=== PATIENT | female | born 1975 | race Caucasian/White ===

== ENCOUNTER 2016-09-06 13:03 | Emergency (ER) | payer OTHER ==
[~2016-09-06 13:03] MED LIST: ABIL15TA OR; ASPI81TA83 OR; BUDE150T; CAHNTIXC PO; CHAN0.5P PO; CYMBALTA60 PO; DARVOCET-N PO; DIFLUC150 PO; DOXYCYC100 PO; EFFE75CA75 OR; EFFEXOR PO; FELDENE; FELDENE20 PO; FLEXERIL; FLEXERIL10 PO; GEOD60CA; GEODON20; HABITROL14 TOPICAL; HABITROL7 TOPICAL; KLON0.5T OR; MOTRIN800 PO; NAPROSY500 PO; NICODERM TOPICAL; PIROPOW2; PREVMIS PO; PRIL20CA OR; PRILOSEC20 PO; PRILOSECOT PO; PROP60TA OR; PROTONIX40 PO; PROZ40CA; PROZAC20 PO; PROZAC40 PO; TORADOL PO; TRAM50TA2; TRAZ100T OR; ULTRAM50 PO; WELLBUT300; ZIPR80CAP
[2016-09-06 13:43] LABS: MEAN CORPUSCULAR HEMOGLOBIN 33.4 pg (27.0-33.0); MEAN CORPUSCULAR VOLUME 95.5 fl (80.0-96.0); WHITE BLOOD COUNT 8.6 K/mm3 (4.0-10.0)
[2016-09-06 13:50] LABS: CONTROL LINE HCG INT CTR LINE PRESENT
[2016-09-06 13:51] LABS: CONTROL LINE INT CTR LINE PRESENT; METHADONE URINE NEGATIVE (NEGATIVE); TRICYCLIC ANTIDEPRESS URINE NEGATIVE (NEGATIVE)
[2016-09-06 14:06] LABS: ALBUMIN 3.5 GM/DL (3.2-5.2); ALBUMIN/GLOBULIN RATIO 1.06 (1.00-1.93); ALKALINE PHOSPHATASE 79 U/L (45-117); ALT/SGPT 18 U/L (12-78); ANION GAP 13 MEQ/L (8-16); AST/SGOT 9 U/L (15-37); BILIRUBIN,DIRECT < 0.1 MG/DL (0.0-0.2); BILIRUBIN,TOTAL 0.3 MG/DL (0.2-1.0); BLOOD UREA NITROGEN 9 MG/DL (7-18); CALCIUM LEVEL 8.5 MG/DL (8.5-10.1); CARBON DIOXIDE LEVEL 24 MEQ/L (21-32); CHLORIDE LEVEL 105 MEQ/L (98-107); CREATININE FOR GFR 1.05 MG/DL (0.55-1.02); GLOMERULAR FILTRATION RATE > 60.0 (>58); GLUCOSE, FASTING 122 MG/DL (70-105); POTASSIUM SERUM 3.9 MEQ/L (3.5-5.1); SODIUM LEVEL 142 MEQ/L (136-145); TOTAL PROTEIN 6.8 GM/DL (6.4-8.2)
[2016-09-06] MEDS ORDERED: NICOTINE 21MG/24HR 1 EA TRANSDERMAL As Ordered ONE (14:22)
--- NOTE | 2016-09-06 17:40 | EDDOCDS ---
Physician Documentation [facility] Name: Florence Flores Age: 41 yrs Sex: Female : 1975 Arrival Date: 09/06/2016 Time: 13:03 Bed 31 Private MD: NO PRIMARY PHYSICIAN, . Disposition: 09/06/16 17:23 Discharged to Home/Self Care. Impression: Adjustment disorder with depressed mood. - Condition is Stable. - Discharge Instructions: Depression, Adult. - Medication Reconciliation, Local Pharmacy Hours form. - Follow up: Referral list, As provided by PFS; When: As soon as possible; Reason: Recheck today's complaints, Continuance of care. - Problem is an ongoing problem. - Symptoms are unchanged. Historical: - Allergies: Robitussin PE (Hives); - Home Meds: 1. Albuterol Inhl every 4-6 hours prn 2. cyclobenzaprine 10 mg Oral tab 1 tab 3 times per day (Last dose: 09/05/2016) 3. Dulera 200-5 mcg/actuation inhalation HFAA every 12 hours 4. Asmanex Twisthaler 220 mcg (30 doses) inhalation aepb 1 puff once daily - PMHx: Angina; arthitis; Asthma; COPD; [place]; AIR POCKET IN SPINE; - PSHx: Tubal ligation; Cholecystectomy; cauterization of cervix; Colonoscopy; - Social history: Smoking status: Patient uses tobacco products, current every day smoker. No barriers to communication noted, The patient speaks fluent [place]serrat[place], Speaks appropriately for age. - Family history: Not pertinent. - : The pt / caregiver states he / she is not on anticoagulants. Home medication list is obtained from the patient. - Exposure Risk Screening:: None identified. 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 8 in. (172.72 cm); 17:34 BP 124 / 60; Pulse 89; Resp 97; Temp 96.8; Pulse Ox 97% on R/A; amw 13:05 Body Mass Index 36.49 (108.86 kg, 172.72 cm) lr2 MDM: 13:19 Consult PFS/PSA/Cull Grader ordered. sd1 13:19 Consult PFS/PSA/Cull Grader: Patient's case requires discussion with on-call sd1 Psychiatrist ordered. 13:19 PSA/PFS to call Nursing Certified Nursing Assistant, to enter patient data on [place] Safe [place] if patient sd1 involuntarily admitted or transferred for SI or HI ordered. 13:19 Confirm accurate psychiatric medication list and times of last dosage ordered. sd1 13:19 Detain Pt Until Medically/PFS Cleared ordered. sd1 13:21 Acetaminophen Level Ordered. EDMS 13:21 Basic Metabolic Profile Ordered. EDMS 13:21 Complete Blood Count Ordered. EDMS 13:21 Drug Eval Toxicology ED Only Ordered. EDMS 13:21 Ethyl Alcohol (ethanol) Ordered. EDMS 13:21 HCG,Serum Qualitative Ordered. EDMS 13:21 Liver Profile Ordered. EDMS 13:21 Salicylate Level Ordered. EDMS 13:21 Thyroid Stimulating Hormone Ordered. EDMS 13:51 Nicotine Patch 21 mg/24 hr 1 applic Transdermal once ordered. ke 15:54 Financial registration complete. zo 16:47 REGULAR DIET PLASTIC HEADLEY+DIET ordered. EDMS 17:37 Consult PFS/PSA/Cull Grader complete. me3 17:37 Consult PFS/PSA/Cull Grader: Patient's case requires discussion with on-call md3 Psychiatrist complete. 17:37 PSA/PFS to call Nursing Certified Nursing Assistant, to enter patient data on [place] Safe [place] if patient me3 involuntarily admitted or transferred for SI or HI complete. Administered Medications: 14:25 Drug: Nicotine 1 applic [nicotine 21 mg/24 hr daily transdermal patch (1 patches)] me3 Route: Transdermal; Site: left upper arm; Signatures: Dispatcher [employer] EDThalia Nayak MD MD sd1 Pauline Camejo, RN RN Jackson Law, THEATRICAL PERFORMER THEATRICAL PERFORMER Soniya Hays LPN LPN me3 Nathaniel Hare MTDD
--- NOTE | 2016-09-06 17:40 | EDDOCDS ---
Nurse's Notes [facility] Name: Florence Flores Age: 41 yrs Sex: Female : 1975 Arrival Date: 09/06/2016 Time: 13:03 Bed 31 Private MD: NO PRIMARY PHYSICIAN, . Diagnosis: Adjustment disorder with depressed mood Presentation: 09/06 13:08 Presenting complaint: Patient states: im having suicidal thoughts. i told my doctor i srm need to be back on my thoughts. thoughts of SI and HI for past month. Mental Health Triage Level: Level 2: The patient displays active suicidal ideations. The patient displays active homicidal ideations. Adult Sepsis Screening: The patient does not have new or worsening altered mentation. Patient's respiratory rate is less than 22. Systolic blood pressure is greater than 100. Patient has a qSOFA score of 0- Negative Sepsis Screen. Suicide/Homicide risk assessment- The patient admits to and/or has been reported to be having suicidal ideations. The patient admits to and/or has been reported to be having homicidal ideations. 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 Transition of care: patient was not received from another setting of care. 13:08 Acuity: DARNELL Level 3 srm 13:08 Method Of Arrival: Walkin/Carried/Asstd srm Triage Assessment: 13:13 General: Appears in no apparent distress, Behavior is appropriate for age, cooperative. srm Pain: Denies pain. HIV screening NA for this visit Offered previously. 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 Albuterol Inhl every 4-6 hours prn 2. cyclobenzaprine 10 mg Oral tab 1 tab 3 times per day (Last dose: 09/05/2016) 3. Dulera 200-5 mcg/actuation inhalation HFAA every 12 hours 4. Asmanex Twisthaler 220 mcg (30 doses) inhalation aepb 1 puff once daily - PMHx: Angina; arthitis; Asthma; COPD; [place]; AIR POCKET IN SPINE; - PSHx: Tubal ligation; Cholecystectomy; cauterization of cervix; Colonoscopy; - Social history: Smoking status: Patient uses tobacco products, current every day smoker. No barriers to communication noted, The patient speaks fluent South African, Speaks appropriately for age. - Family history: Not pertinent. - : The pt / caregiver states he / she is not on anticoagulants. Home medication list is obtained from the patient. - Exposure Risk Screening:: None identified. Screenin:16 Screening information is obtained from the patient. Fall risk: No risks identified. me3 Assistance ADL's: requires no assistance with activities of daily living. Abuse/DV Screen: The patient / caregiver reports he/she is:. Abuse/DV Screen: The patient / caregiver reports he/she is: not in a situation that causes fear, pain or injury. Nutritional screening: No deficits noted. Advance Directives: Currently, there is no health care proxy. home support is adequate. Assessment: 13:35 General: Appears in no apparent distress, comfortable, Behavior is cooperative, me3 pleasant, tearful when talking about mother in 2013. Respiratory: No deficits noted. Airway is patent Respiratory effort is even, unlabored. Derm: Skin is pink, warm & dry. 14:15 General: Appears in no apparent distress, comfortable, Behavior is cooperative, friend me3 at bedside. Respiratory: No deficits noted. Airway is patent Respiratory effort is even, unlabored. Derm: Skin is pink, warm & dry. 15:17 General: Appears in no apparent distress, comfortable, Behavior is cooperative, pt me3 watching TV. Respiratory: No deficits noted. Airway is patent Respiratory effort is even, unlabored. Derm: Skin is pink, warm & dry. 16:20 General: Appears in no apparent distress, comfortable, Behavior is cooperative, me3 pleasant. Respiratory: No deficits noted. Airway is patent Respiratory effort is even, unlabored. Derm: Skin is pink, warm & dry. Vital Signs: 13:05 BP 137 / 70; Pulse 95; Resp 16; Temp 99.0(O); Pulse Ox 99% on R/A; Weight 108.86 kg lr2 (R); Height 5 ft. 8 in. (172.72 cm); 17:34 BP 124 / 60; Pulse 89; Resp 97; Temp 96.8; Pulse Ox 97% on R/A; amw 13:05 Body Mass Index 36.49 (108.86 kg, 172.72 cm) lr2 Vitals: 13:05 Log In Time: September 06, 2016 at 13:03. lr2 13:05 RN notified that patient meets Red Flag criteria. lr2 ED Course: 13:05 Patient visited by Olena Ramon. lr2 13:05 NO PRIMARY PHYSICIAN, . is Private Physician. lr2 13:05 Patient moved to Waiting lr2 13:07 Patient moved to Pre RCE lr2 13:08 Triage Initiated srm 13:16 Patient moved to 31 srm 13:29 Patient visited by Evi Villafana PCA. amw 13:34 Acetaminophen Level Sent. me3 13:34 Basic Metabolic Profile Sent. me3 13:34 Complete Blood Count Sent. me3 13:34 Drug Eval Toxicology ED Only Sent. me3 13:34 Ethyl Alcohol (ethanol) Sent. me3 13:34 HCG,Serum Qualitative Sent. me3 13:34 Liver Profile Sent. me3 13:35 Salicylate Level Sent. me3 13:35 Thyroid Stimulating Hormone Sent. me3 13:41 Jackson Elizabeth FNP is [facility]. ke 13:41 Patient visited by Jackson Elizabeth FNP. ke 13:41 Patient visited by Jackson Elizabeth FNP. ke 13:54 Patient visited by Evi Villafana PCA. amw 14:01 Patient visited by Evi Villafana PCA. amw 14:15 Patient visited by Evi Villafana PCA. amw 14:29 Patient visited by Evi Villafana PCA. amw 14:44 Patient visited by Evi Villafana PCA. amw 14:57 Patient visited by vEi Villafana PCA. amw 15:16 Patient visited by Evi Villafana PCA. amw 15:16 The patient / caregiver is instructed regarding the plan of care and ED course. me3 15:28 Patient visited by Evi Villafana PCA. amw 15:44 Patient visited by Evi Villafana PCA. amw 15:59 Patient visited by Evi Villafana PCA. amw 16:07 Patient visited by Josefina Andersen PSA. ml4 16:21 Patient visited by Alejandro Esteban. jml1 16:21 Psych Safety Check: Location: Psych Room. Visual Assessment: Cooperative. jml1 16:29 Patient visited by Evi Villafana PCA. amw 16:45 Patient visited by Evi Villafana PCA. amw 16:53 Soniya Hernández LPN is Primary Nurse. me3 17:00 Patient visited by Evi Villafana PCA. amw 17:17 Patient visited by Evi Villafana PCA. amw 17:22 Referral list, As provided by PFS is Referral Physician. ke 17:35 Patient visited by Evi Villafana PCA. amw 17:35 No IV's were initiated during this patient's visit. No procedures done that require me3 assistance. Administered Medications: 14:25 Drug: Nicotine 1 applic [nicotine 21 mg/24 hr daily transdermal patch (1 patches)] me3 Route: Transdermal; Site: left upper arm; Order Results: Lab Order: Acetaminophen Level; SPEC'M 09/06/16 13:32 Test: ACETAMINOPHEN LEVEL; Value: < 2.0; Range: 10.0-30.0; Abnormal: Below low normal; Units: UG/ML; Status: F Lab Order: Basic Metabolic Profile; SPEC'M 09/06/16 13:32 Test: GLUCOSE, FASTING; Value: 122; Range: 70-105; Abnormal: Above high normal; Units: MG/DL; Status: F Test: BLOOD UREA NITROGEN; Value: 9; Range: 7-18; Units: MG/DL; Status: F Test: CREATININE FOR GFR; Value: 1.05; Range: 0.55-1.02; Abnormal: Above high normal; Units: MG/DL; Status: F Test: SODIUM LEVEL; Range: 136-145; Units: MEQ/L; Status: I Test: POTASSIUM SERUM; Range: 3.5-5.1; Units: MEQ/L; Status: I Test: CHLORIDE LEVEL; Range: 98-107; Units: MEQ/L; Status: I Test: CARBON DIOXIDE LEVEL; Range: 21-32; Units: MEQ/L; Status: I Test: ANION GAP; Range: 8-16; Units: MEQ/L; Status: I Test: CALCIUM LEVEL; Range: 8.5-10.1; Units: MG/DL; Status: I Test: GLOMERULAR FILTRATION RATE; Value: > 60.0; Range: >58; Status: F Test: SODIUM LEVEL; Value: 142; Range: 136-145; Units: MEQ/L; Status: F Test: POTASSIUM SERUM; Value: 3.9; Range: 3.5-5.1; Units: MEQ/L; Status: F Test: CHLORIDE LEVEL; Value: 105; Range: 98-107; Units: MEQ/L; Status: F Test: CARBON DIOXIDE LEVEL; Value: 24; Range: 21-32; Units: MEQ/L; Status: F Test: ANION GAP; Value: 13; Range: 8-16; Units: MEQ/L; Status: F Test: CALCIUM LEVEL; Value: 8.5; Range: 8.5-10.1; Units: MG/DL; Status: F Test Note: ; Units are mL/min/1.73 m2 Chronic Kidney Disease Staging per NKF: Stage I & II GFR >=60 Normal to Mildly Decreased Stage III GFR 30-59 Moderately Decreased Stage IV GFR 15-29 Severely Decreased Stage V GFR <15 Very Little GFR Left ESRD GFR <15 on SCABBLER Lab Order: Complete Blood Count; SPEC'M 09/06/16 13:32 Test: WHITE BLOOD COUNT; Value: 8.6; Range: 4.0-10.0; Units: K/mm3; Status: F Test: RED BLOOD COUNT; Value: 4.52; Range: 4.00-5.40; Units: M/mm3; Status: F Test: HEMOGLOBIN; Value: 15.1; Range: 12.0-16.0; Units: g/dl; Status: F Test: HEMATOCRIT; Value: 43.2; Range: 36.0-47.0; Units: %; Status: F Test: MEAN CORPUSCULAR VOLUME; Value: 95.5; Range: 80.0-96.0; Units: fl; Status: F Test: MEAN CORPUSCULAR HEMOGLOBIN; Value: 33.4; Range: 27.0-33.0; Abnormal: Above high normal; Units: pg; Status: F Test: MEAN CORPUSCULAR HGB CONC; Value: 35.0; Range: 32.0-36.5; Units: g/dl; Status: F Test: RED CELL DISTRIBUTION WIDTH; Value: 12.0; Range: 11.5-14.5; Units: %; Status: F Test: PLATELET COUNT, AUTOMATED; Value: 274; Range: 150-450; Units: k/mm3; Status: F Lab Order: Drug Eval Toxicology ED Only; SPEC'M 09/06/16 13:27 Test: AMPHETAMINES LEVEL URINE; Value: NEGATIVE; Range: NEGATIVE; Status: F Test: BARBITURATES URINE; Value: NEGATIVE; Range: NEGATIVE; Status: F Test: BENZODIAZEPINES URINE; Value: NEGATIVE; Range: NEGATIVE; Status: F Test: CANNABINOIDS URINE; Value: NEGATIVE; Range: NEGATIVE; Status: F Test: COCAINE METABOLITE URINE; Value: NEGATIVE; Range: NEGATIVE; Status: F Test: METHADONE URINE; Value: NEGATIVE; Range: NEGATIVE; Status: F Test: OPIATES URINE; Value: NEGATIVE; Range: NEGATIVE; Status: F Test: TRICYCLIC ANTIDEPRESS URINE; Value: NEGATIVE; Range: NEGATIVE; Status: F Test Note: ; ALL PRESUMPTIVE POSITIVE FINDINGS ARE UNCONFIRMED NORMAL VALUES THRESHOLD IN NG/ML AMPHETAMINES 1000 METHAMPHETAMINES 1000 BARBITURATES 300 BENZODIAZEPINES 300 CANNABINOIDS (THC) 50 COCAINE METABOLITE 300 METHADONE 300 OPIATES 300 PHENCYCLIDINE 25 TRICYCLIC ANTIDEPRESSANTS 1000 RESULTS ARE FOR MEDICAL PURPOSES ONLY. ALL URINE SPECIMENS WILL BE SAVED FOR 3 DAYS. IF CONFIRMATION OF A PRESUMPTIVE POSTIVE SCREEN RESULT IS DESIRED, CALL CHEMISTRY ([phone]) AND REQUEST URINE TO BE SENT TO REFERENCE LAB. FOR A LIST OF CLOSELY RELATED COMPOUNDS PLEASE CALL THE LAB. Lab Order: Ethyl Alcohol (ethanol); SPEC'M 09/06/16 13:32 Test: ETHYL ALCOHOL (ETHANOL); Value: < 0.003; Range: 0.000-0.010; Units: %; Status: F Lab Order: HCG,Serum Qualitative; SPEC'M 09/06/16 13:32 Test: HCG, SERUM QUALITATIVE; Value: NEGATIVE; Range: NEGATIVE; Status: F Lab Order: Liver Profile; SPEC'M 09/06/16 13:32 Test: AST/SGOT; Value: 9; Range: 15-37; Abnormal: Below low normal; Units: U/L; Status: F Test: ALT/SGPT; Value: 18; Range: 12-78; Units: U/L; Status: F Test: ALKALINE PHOSPHATASE; Value: 79; Range: 45-117; Units: U/L; Status: F Test: BILIRUBIN,TOTAL; Value: 0.3; Range: 0.2-1.0; Units: MG/DL; Status: F Test: BILIRUBIN,DIRECT; Value: < 0.1; Range: 0.0-0.2; Units: MG/DL; Status: F Test: TOTAL PROTEIN; Value: 6.8; Range: 6.4-8.2; Units: GM/DL; Status: F Test: ALBUMIN; Value: 3.5; Range: 3.2-5.2; Units: GM/DL; Status: F Test: ALBUMIN/GLOBULIN RATIO; Value: 1.06; Range: 1.00-1.93; Status: F Lab Order: Salicylate Level; SPEC'M 09/06/16 13:32 Test: SALICYLATE LEVEL; Value: 3.7; Range: 5.0-30.0; Abnormal: Below low normal; Units: MG/DL; Status: F Lab Order: Thyroid Stimulating Hormone; SPEC'M 09/06/16 13:32 Test: THYROID STIMULATING HORMONE; Value: 1.040; Range: 0.358-3.740; Units: uIU/ML; Status: F Outcome: 15:16 Property removed, inventory done, secured in belongings bag- placed in locked locker. me3 17:23 Discharge ordered by Provider. ke 17:35 Discharge Assessment: patient administered narcotics - no. The following High Risk me3 Discharge criteria are identified: None. Discharged to home ambulatory, with significant other. Condition: stable. Discharge instructions given to patient. No special radiology studies were completed. 17:39 Patient left the ED. me3 Signatures: Pauline Camejo, RN RN [facility] Jackson Elizabeth, INSTRUMENT MAN INSTRUMENT MAN Soniya Hays,CLINICAL NURSE MANAGER CLINICAL NURSE MANAGER me3 Josefina Andersen, PSA PSA ml4 Alejandro Esteban jml1 Evi Villafana, PROCUREMENT SPECIALIST PROCUREMENT SPECIALIST amw Olena Ramon lr2 MTDD
--- NOTE | 2016-09-08 18:40 | EDDOCDS ---
Nurse's Notes [facility] Name: Florence Flores Age: 41 yrs Sex: Female : 1975 Arrival Date: 09/06/2016 Time: 13:03 Bed 31 Private MD: NO PRIMARY PHYSICIAN, . Diagnosis: Adjustment disorder with depressed mood Presentation: 09/06 13:08 Presenting complaint: Patient states: im having suicidal thoughts. i told my doctor i srm need to be back on my thoughts. thoughts of SI and HI for past month. Mental Health Triage Level: Level 2: The patient displays active suicidal ideations. The patient displays active homicidal ideations. Adult Sepsis Screening: The patient does not have new or worsening altered mentation. Patient's respiratory rate is less than 22. Systolic blood pressure is greater than 100. Patient has a qSOFA score of 0- Negative Sepsis Screen. Suicide/Homicide risk assessment- The patient admits to and/or has been reported to be having suicidal ideations. The patient admits to and/or has been reported to be having homicidal ideations. Status: Patient is not a service dismantler or dependent. Transition of care: patient was not received from another setting of care. 13:08 Acuity: DARNELL Level 3 srm 13:08 Method Of Arrival: Walkin/Carried/Asstd srm Triage Assessment: 13:13 General: Appears in no apparent distress, Behavior is appropriate for age, cooperative. srm Pain: Denies pain. HIV screening NA for this visit Offered previously. 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 Albuterol Inhl every 4-6 hours prn 2. cyclobenzaprine 10 mg Oral tab 1 tab 3 times per day (Last dose: 09/05/2016) 3. Dulera 200-5 mcg/actuation inhalation HFAA every 12 hours 4. Asmanex Twisthaler 220 mcg (30 doses) inhalation aepb 1 puff once daily - PMHx: Angina; arthitis; Asthma; COPD; [place]; AIR POCKET IN SPINE; - PSHx: Tubal ligation; Cholecystectomy; cauterization of cervix; Colonoscopy; - Social history: Smoking status: Patient uses tobacco products, current every day smoker. No barriers to communication noted, The patient speaks fluent Afghan, Speaks appropriately for age. - Family history: Not pertinent. - : The pt / caregiver states he / she is not on anticoagulants. Home medication list is obtained from the patient. - Exposure Risk Screening:: None identified. Screenin:16 Screening information is obtained from the patient. Fall risk: No risks identified. me3 Assistance ADL's: requires no assistance with activities of daily living. Abuse/DV Screen: The patient / caregiver reports he/she is:. Abuse/DV Screen: The patient / caregiver reports he/she is: not in a situation that causes fear, pain or injury. Nutritional screening: No deficits noted. Advance Directives: Currently, there is no health care proxy. home support is adequate. Assessment: 13:35 General: Appears in no apparent distress, comfortable, Behavior is cooperative, me3 pleasant, tearful when talking about mother in 2013. Respiratory: No deficits noted. Airway is patent Respiratory effort is even, unlabored. Derm: Skin is pink, warm & dry. 14:15 General: Appears in no apparent distress, comfortable, Behavior is cooperative, friend me3 at bedside. Respiratory: No deficits noted. Airway is patent Respiratory effort is even, unlabored. Derm: Skin is pink, warm & dry. 15:17 General: Appears in no apparent distress, comfortable, Behavior is cooperative, pt me3 watching TV. Respiratory: No deficits noted. Airway is patent Respiratory effort is even, unlabored. Derm: Skin is pink, warm & dry. 16:20 General: Appears in no apparent distress, comfortable, Behavior is cooperative, me3 pleasant. Respiratory: No deficits noted. Airway is patent Respiratory effort is even, unlabored. Derm: Skin is pink, warm & dry. Mental Health Eval: 17:41 Mental health consult is initiated at 17:00. Mental health consult is initiated at ml4 16:30. Status: The patient is not a service dismantler or dependent. [facility]: The patient is not an established patient of [facility]. Referral Information: Evaluation referral is generated by the patient himself / herself. The patient was referred for evaluation because thoughts of suicide with plan for gunshot . Subjective: The patients chief complaint is pt states, "I've been having suicidal thoughts again." Pt reports suffering from thoughts of suicide for many months, however claims suicidal thoughts are getting more severe. Admits having a difficult time coping with her Mother's in 2013 and states, "I just miss her so much." Additionally, pt reports having thoughts of wanting to harm adali's brothe(whom she resides with) due to his poor hygiene. Pt states, "I would never actually kill him, I just want to smack him upside his head." Pt reports having suicidal thoughts, but strongly believes she would never actually attempt and denies current SI while in the ED. . Delusions are denied. Patient's mood is anxious, appropriate. Hallucinations are denied. Mental Health history: depression, Mental Health Admissions: Last transferred to [facility], November 2010 Current Outpatient Mental Health Services: Therapist / Agency: [facility] . Pt is currently on the waiting list to be seen by the psychiatrist . Current living environment is Family / Home Support: adequate support. Pt resides with daughter, adali and his Mother and Brother The patient is single. Patient presents to Emergency Department with the following symptoms within the past 2 weeks: anxiety, increased appetite, depressed mood, SI with plan for gunshot, however does not have access to any weapons. Pt currently denies SI while in ED and states she would never attempt. . sleep disturbance - insomnia. Substance abuse: Patient uses tobacco 2 packs Frequency daily. Mental status exam: Patients appearance is obese, Patient's behavior is cooperative, Speech is normal. Affect is appropriate. Mood is anxious. Hallucinations are denied. Appetite is characterized by binges. Memory is good. Energy level is normal. Content of thought is depressive. due to recent thoughts of suicide Thought process is intact. Cognitive level is oriented to person, place, time and situation Patient's insight is fair. Judgement is fair. Rapport with interviewer is good. Suicidal Ideation is denied. Homicidal ideation is denied. Disposition: Medically cleared for disposition by Jackson AGUIRRE Psychiatric Consult is deferred per ED physician, TIMOTHY Curtis . [facility] Admission Criteria: Not Applicable. DSM-V Differential Diagnosis: Adjustment Disorder (F43.2) unspecified (F43.20). Narrative: Pt is able to be discharged from [facility]. She continues to deny SI and HI while in the ED. Referrals for outpt services was given at bedside and directed to follow up with [facility] for further tx. Pt was recommended to return to ED if symptoms worsen. Spoke to adali who reports he is able to supervise until being seen at [facility]. No further concerns noted. Vital Signs: 13:05 BP 137 / 70; Pulse 95; Resp 16; Temp 99.0(O); Pulse Ox 99% on R/A; Weight 108.86 kg lr2 (R); Height 5 ft. 8 in. (172.72 cm); 17:34 BP 124 / 60; Pulse 89; Resp 97; Temp 96.8; Pulse Ox 97% on R/A; amw 13:05 Body Mass Index 36.49 (108.86 kg, 172.72 cm) lr2 Vitals: 13:05 Log In Time: September 06, 2016 at 13:03. lr2 13:05 RN notified that patient meets Red Flag criteria. lr2 ED Course: 13:05 Patient visited by Olena Ramon. lr2 13:05 NO PRIMARY PHYSICIAN, . is Private Physician. lr2 13:05 Patient moved to Waiting lr2 13:07 Patient moved to Pre RCE lr2 13:08 Triage Initiated srm 13:16 Patient moved to 31 srm 13:29 Patient visited by Evi Villafana PCA. amw 13:34 Acetaminophen Level Sent. me3 13:34 Basic Metabolic Profile Sent. me3 13:34 Complete Blood Count Sent. me3 13:34 Drug Eval Toxicology ED Only Sent. me3 13:34 Ethyl Alcohol (ethanol) Sent. me3 13:34 HCG,Serum Qualitative Sent. me3 13:34 Liver Profile Sent. me3 13:35 Salicylate Level Sent. me3 13:35 Thyroid Stimulating Hormone Sent. me3 13:41 [facility] ke 13:41 Patient visited by Jackson Elizabeth FNP. ke 13:41 Patient visited by Jackson Elizabeth FNP. ke 13:54 Patient visited by Evi Villafana PCA. amw 14:01 Patient visited by Evi Villafana PCA. amw 14:15 Patient visited by Evi Villafana PCA. amw 14:29 Patient visited by Evi Villafana PCA. amw 14:44 Patient visited by Evi Villafana PCA. amw 14:57 Patient visited by Evi Villafana PCA. amw 15:16 Patient visited by Evi Villafana PCA. amw 15:16 The patient / caregiver is instructed regarding the plan of care and ED course. me3 15:28 Patient visited by Evi Villafana PCA. amw 15:44 Patient visited by Evi Villafana PCA. amw 15:59 Patient visited by Evi Villafana PCA. amw 16:07 Patient visited by Josefina Andersen PSA. ml4 16:21 Patient visited by Alejandro Esteban. jml1 16:21 Psych Safety Check: Location: Psych Room. Visual Assessment: Cooperative. jml1 16:29 Patient visited by Evi Villafana PCA. amw 16:45 Patient visited by Evi Villafana PCA. amw 16:53 Soniya Hernández LPN is Primary Nurse. me3 17:00 Patient visited by Evi Villafana PCA. amw 17:17 Patient visited by Evi Villafana PCA. amw 17:22 Referral list, As provided by PFS is Referral Physician. ke 17:35 Patient visited by Evi Villafana PCA. amw 17:35 No IV's were initiated during this patient's visit. No procedures done that require me3 assistance. 18:06 PSA Outpatient Referrals was scanned into [employer] and attached to record. ml4 09/07 14:20 T-Sheet-- Draft Copy was scanned into [employer] and attached to record. gb Administered Medications: 09/06 14:25 Drug: Nicotine 1 applic [nicotine 21 mg/24 hr daily transdermal patch (1 patches)] me3 Route: Transdermal; Site: left upper arm; Order Results: Lab Order: Acetaminophen Level; SPEC'M 09/06/16 13:32 Test: ACETAMINOPHEN LEVEL; Value: < 2.0; Range: 10.0-30.0; Abnormal: Below low normal; Units: UG/ML; Status: F Lab Order: Basic Metabolic Profile; SPEC'M 09/06/16 13:32 Test: GLUCOSE, FASTING; Value: 122; Range: 70-105; Abnormal: Above high normal; Units: MG/DL; Status: F Test: BLOOD UREA NITROGEN; Value: 9; Range: 7-18; Units: MG/DL; Status: F Test: CREATININE FOR GFR; Value: 1.05; Range: 0.55-1.02; Abnormal: Above high normal; Units: MG/DL; Status: F Test: SODIUM LEVEL; Range: 136-145; Units: MEQ/L; Status: I Test: POTASSIUM SERUM; Range: 3.5-5.1; Units: MEQ/L; Status: I Test: CHLORIDE LEVEL; Range: 98-107; Units: MEQ/L; Status: I Test: CARBON DIOXIDE LEVEL; Range: 21-32; Units: MEQ/L; Status: I Test: ANION GAP; Range: 8-16; Units: MEQ/L; Status: I Test: CALCIUM LEVEL; Range: 8.5-10.1; Units: MG/DL; Status: I Test: GLOMERULAR FILTRATION RATE; Value: > 60.0; Range: >58; Status: F Test: SODIUM LEVEL; Value: 142; Range: 136-145; Units: MEQ/L; Status: F Test: POTASSIUM SERUM; Value: 3.9; Range: 3.5-5.1; Units: MEQ/L; Status: F Test: CHLORIDE LEVEL; Value: 105; Range: 98-107; Units: MEQ/L; Status: F Test: CARBON DIOXIDE LEVEL; Value: 24; Range: 21-32; Units: MEQ/L; Status: F Test: ANION GAP; Value: 13; Range: 8-16; Units: MEQ/L; Status: F Test: CALCIUM LEVEL; Value: 8.5; Range: 8.5-10.1; Units: MG/DL; Status: F Test Note: ; Units are mL/min/1.73 m2 Chronic Kidney Disease Staging per NKF: Stage I & II GFR >=60 Normal to Mildly Decreased Stage III GFR 30-59 Moderately Decreased Stage IV GFR 15-29 Severely Decreased Stage V GFR <15 Very Little GFR Left ESRD GFR <15 on OCCUPATIONAL THERAPY ASSIST Lab Order: Complete Blood Count; SPEC'M 09/06/16 13:32 Test: WHITE BLOOD COUNT; Value: 8.6; Range: 4.0-10.0; Units: K/mm3; Status: F Test: RED BLOOD COUNT; Value: 4.52; Range: 4.00-5.40; Units: M/mm3; Status: F Test: HEMOGLOBIN; Value: 15.1; Range: 12.0-16.0; Units: g/dl; Status: F Test: HEMATOCRIT; Value: 43.2; Range: 36.0-47.0; Units: %; Status: F Test: MEAN CORPUSCULAR VOLUME; Value: 95.5; Range: 80.0-96.0; Units: fl; Status: F Test: MEAN CORPUSCULAR HEMOGLOBIN; Value: 33.4; Range: 27.0-33.0; Abnormal: Above high normal; Units: pg; Status: F Test: MEAN CORPUSCULAR HGB CONC; Value: 35.0; Range: 32.0-36.5; Units: g/dl; Status: F Test: RED CELL DISTRIBUTION WIDTH; Value: 12.0; Range: 11.5-14.5; Units: %; Status: F Test: PLATELET COUNT, AUTOMATED; Value: 274; Range: 150-450; Units: k/mm3; Status: F Lab Order: Drug Eval Toxicology ED Only; SPEC'M 09/06/16 13:27 Test: AMPHETAMINES LEVEL URINE; Value: NEGATIVE; Range: NEGATIVE; Status: F Test: BARBITURATES URINE; Value: NEGATIVE; Range: NEGATIVE; Status: F Test: BENZODIAZEPINES URINE; Value: NEGATIVE; Range: NEGATIVE; Status: F Test: CANNABINOIDS URINE; Value: NEGATIVE; Range: NEGATIVE; Status: F Test: COCAINE METABOLITE URINE; Value: NEGATIVE; Range: NEGATIVE; Status: F Test: METHADONE URINE; Value: NEGATIVE; Range: NEGATIVE; Status: F Test: OPIATES URINE; Value: NEGATIVE; Range: NEGATIVE; Status: F Test: TRICYCLIC ANTIDEPRESS URINE; Value: NEGATIVE; Range: NEGATIVE; Status: F Test Note: ; ALL PRESUMPTIVE POSITIVE FINDINGS ARE UNCONFIRMED NORMAL VALUES THRESHOLD IN NG/ML AMPHETAMINES 1000 METHAMPHETAMINES 1000 BARBITURATES 300 BENZODIAZEPINES 300 CANNABINOIDS (THC) 50 COCAINE METABOLITE 300 METHADONE 300 OPIATES 300 PHENCYCLIDINE 25 TRICYCLIC ANTIDEPRESSANTS 1000 RESULTS ARE FOR MEDICAL PURPOSES ONLY. ALL URINE SPECIMENS WILL BE SAVED FOR 3 DAYS. IF CONFIRMATION OF A PRESUMPTIVE POSTIVE SCREEN RESULT IS DESIRED, CALL CHEMISTRY ([phone]) AND REQUEST URINE TO BE SENT TO REFERENCE LAB. FOR A LIST OF CLOSELY RELATED COMPOUNDS PLEASE CALL THE LAB. Lab Order: Ethyl Alcohol (ethanol); SPEC'M 02/21/17 13:32 Test: ETHYL ALCOHOL (ETHANOL); Value: < 0.003; Range: 0.000-0.010; Units: %; Status: F Lab Order: HCG,Serum Qualitative; SPEC'M 09/06/16 13:32 Test: HCG, SERUM QUALITATIVE; Value: NEGATIVE; Range: NEGATIVE; Status: F Lab Order: Liver Profile; SPEC' 09/06/16 13:32 Test: AST/SGOT; Value: 9; Range: 15-37; Abnormal: Below low normal; Units: U/L; Status: F Test: ALT/SGPT; Value: 18; Range: 12-78; Units: U/L; Status: F Test: ALKALINE PHOSPHATASE; Value: 79; Range: 45-117; Units: U/L; Status: F Test: BILIRUBIN,TOTAL; Value: 0.3; Range: 0.2-1.0; Units: MG/DL; Status: F Test: BILIRUBIN,DIRECT; Value: < 0.1; Range: 0.0-0.2; Units: MG/DL; Status: F Test: TOTAL PROTEIN; Value: 6.8; Range: 6.4-8.2; Units: GM/DL; Status: F Test: ALBUMIN; Value: 3.5; Range: 3.2-5.2; Units: GM/DL; Status: F Test: ALBUMIN/GLOBULIN RATIO; Value: 1.06; Range: 1.00-1.93; Status: F Lab Order: Salicylate Level; SPEC' 09/06/16 13:32 Test: SALICYLATE LEVEL; Value: 3.7; Range: 5.0-30.0; Abnormal: Below low normal; Units: MG/DL; Status: F Lab Order: Thyroid Stimulating Hormone; SPEC'M 09/06/16 13:32 Test: THYROID STIMULATING HORMONE; Value: 1.040; Range: 0.358-3.740; Units: uIU/ML; Status: F Outcome: 15:16 Property removed, inventory done, secured in belongings bag- placed in locked locker. me3 17:23 Discharge ordered by Provider. ke 17:35 Discharge Assessment: patient administered narcotics - no. The following High Risk ca3 Discharge criteria are identified: None. Discharged to home ambulatory, with significant other. Condition: stable. Discharge instructions given to patient. No special radiology studies were completed. 17:39 Patient left the ED. me3 Signatures: Pauline Camejo, RN RN srm Marisa Pete, Reg Reg gb Jackson Elizabeth, METAL ENGINEERING PROCESS WORKER METAL ENGINEERING PROCESS WORKER ke Soniya Hernández,JOY LOADING MACHINE OPERATOR JOY LOADING MACHINE OPERATOR me3 Josefina Andersen, PSA PSA ml4 Alejandro Esteban jml1 Evi Villafana, SOA INTEGRATION DEVELOPER SOA INTEGRATION DEVELOPER amw Olena Ramon lr2 Chart Complete MTDD
--- NOTE | 2016-09-08 18:40 | EDDOCDS ---
Physician Documentation [facility] Name: Florence Flores Age: 41 yrs Sex: Female : 1975 Arrival Date: 09/06/2016 Time: 13:03 Bed 31 Private MD: NO PRIMARY PHYSICIAN, . Disposition: 09/06/16 17:23 Discharged to Home/Self Care. Impression: Adjustment disorder with depressed mood. - Condition is Stable. - Discharge Instructions: Depression, Adult. - Medication Reconciliation, Local Pharmacy Hours form. - Follow up: Referral list, As provided by PFS; When: As soon as possible; Reason: Recheck today's complaints, Continuance of care. - Problem is an ongoing problem. - Symptoms are unchanged. Historical: - Allergies: Robitussin PE (Hives); - Home Meds: 1. Albuterol Inhl every 4-6 hours prn 2. cyclobenzaprine 10 mg Oral tab 1 tab 3 times per day (Last dose: 09/05/2016) 3. Dulera 200-5 mcg/actuation inhalation HFAA every 12 hours 4. Asmanex Twisthaler 220 mcg (30 doses) inhalation aepb 1 puff once daily - PMHx: Angina; arthitis; Asthma; COPD; [place]; AIR POCKET IN SPINE; - PSHx: Tubal ligation; Cholecystectomy; cauterization of cervix; Colonoscopy; - Social history: Smoking status: Patient uses tobacco products, current every day smoker. No barriers to communication noted, The patient speaks fluent Cymraes, Speaks appropriately for age. - Family history: Not pertinent. - : The pt / caregiver states he / she is not on anticoagulants. Home medication list is obtained from the patient. - Exposure Risk Screening:: None identified. 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 8 in. (172.72 cm); 17:34 BP 124 / 60; Pulse 89; Resp 97; Temp 96.8; Pulse Ox 97% on R/A; amw 13:05 Body Mass Index 36.49 (108.86 kg, 172.72 cm) lr2 MDM: 13:19 Consult PFS/PSA/Crime Scene Investigator ordered. sd1 13:19 Consult PFS/PSA/Crime Scene Investigator: Patient's case requires discussion with on-call sd1 Psychiatrist ordered. 13:19 PSA/PFS to call Nursing Print Traffic Manager, to enter patient data on [place] if patient sd1 involuntarily admitted or transferred for SI or HI ordered. 13:19 Confirm accurate psychiatric medication list and times of last dosage ordered. sd1 13:19 Detain Pt Until Medically/PFS Cleared ordered. sd1 13:21 Acetaminophen Level Ordered. EDMS 13:21 Basic Metabolic Profile Ordered. EDMS 13:21 Complete Blood Count Ordered. EDMS 13:21 Drug Eval Toxicology ED Only Ordered. EDMS 13:21 Ethyl Alcohol (ethanol) Ordered. EDMS 13:21 HCG,Serum Qualitative Ordered. EDMS 13:21 Liver Profile Ordered. EDMS 13:21 Salicylate Level Ordered. EDMS 13:21 Thyroid Stimulating Hormone Ordered. EDMS 13:51 Nicotine Patch 21 mg/24 hr 1 applic Transdermal once ordered. ke 15:54 Financial registration complete. zo 16:47 REGULAR DIET PLASTIC HEADLEY+DIET ordered. EDMS 17:37 Consult PFS/PSA/Crime Scene Investigator complete. me3 17:37 Consult PFS/PSA/Crime Scene Investigator: Patient's case requires discussion with on-call me3 Psychiatrist complete. 17:37 PSA/PFS to call Nursing Print Traffic Manager, to enter [place] data [place] if patient me3 involuntarily admitted or transferred for SI or HI complete. 18:06 PSA Outpatient Referrals was scanned into [employer] and attached to record. ml4 09/07 14:20 T-Sheet-- Draft Copy was scanned into [employer] and attached to record. gb Administered Medications: 09/06 14:25 Drug: Nicotine 1 applic [nicotine 21 mg/24 hr daily transdermal patch (1 patches)] me3 Route: Transdermal; Site: left upper arm; Signatures: Dispatcher MedHoTrupanion EDThalia Nayak MD MD sd1 Pauline Camejo, RN RN [facility] Yanci, Marisa, Reg Reg gb Jackson Elizabeth, DATA CLERK DATA CLERK Soniya Hays LPN LPN me3 Josefina Andersen, PSA PSA ml4 Nathaniel Hare The chart was reviewed and I authenticate all verbal orders and agree with the evaluation and treatment provided.Attachments: 09/07 14:20 T-Sheet-- Draft Copy gb Chart Complete MTDD
--- NOTE | 2016-09-08 18:40 | EDDOCDS ---
Physician Documentation [facility] Name: Florence Flores Age: 41 yrs Sex: Female : 1975 Arrival Date: 09/06/2016 Time: 13:03 Bed 31 Private MD: NO PRIMARY PHYSICIAN, . Disposition: 09/06/16 17:23 Discharged to Home/Self Care. Impression: Adjustment disorder with depressed mood. - Condition is Stable. - Discharge Instructions: Depression, Adult. - Medication Reconciliation, Local Pharmacy Hours form. - Follow up: Referral list, As provided by PFS; When: As soon as possible; Reason: Recheck today's complaints, Continuance of care. - Problem is an ongoing problem. - Symptoms are unchanged. Historical: - Allergies: Robitussin PE (Hives); - Home Meds: 1. Albuterol Inhl every 4-6 hours prn 2. cyclobenzaprine 10 mg Oral tab 1 tab 3 times per day (Last dose: 09/05/2016) 3. Dulera 200-5 mcg/actuation inhalation HFAA every 12 hours 4. Asmanex Twisthaler 220 mcg (30 doses) inhalation aepb 1 puff once daily - PMHx: Angina; arthitis; Asthma; COPD; [place]; AIR POCKET IN SPINE; - PSHx: Tubal ligation; Cholecystectomy; cauterization of cervix; Colonoscopy; - Social history: Smoking status: Patient uses tobacco products, current every day smoker. No barriers to communication noted, The patient speaks fluent Afghan, Speaks appropriately for age. - Family history: Not pertinent. - : The pt / caregiver states he / she is not on anticoagulants. Home medication list is obtained from the patient. - Exposure Risk Screening:: None identified. SENIOR RESIDENT CARE DIRECTOR: 09/06 13:13 LMP 08/06/2016 srm Vital Signs: 13:05 BP 137 / 70; Pulse 95; Resp 16; Temp 99.0(O); Pulse Ox 99% on R/A; Weight 108.86 kg / lr2 240 lbs (R); Height 5 ft. 8 in. (172.72 cm); 17:34 BP 124 / 60; Pulse 89; Resp 97; Temp 96.8; Pulse Ox 97% on R/A; amw 13:05 Body Mass Index 36.49 (108.86 kg, 172.72 cm) lr2 MDM: 13:19 Consult PFS/PSA/Material Requirements Worker ordered. sd1 13:19 Consult PFS/PSA/Material Requirements Worker: Patient's case requires discussion with on-call sd1 Psychiatrist ordered. 13:19 PSA/PFS to call Nursing Delivery Sales Worker, to enter [place] if patient sd1 involuntarily admitted or transferred for SI or HI ordered. 13:19 Confirm accurate psychiatric medication list and times of last dosage ordered. sd1 13:19 Detain Pt Until Medically/PFS Cleared ordered. sd1 13:21 Acetaminophen Level Ordered. EDMS 13:21 Basic Metabolic Profile Ordered. EDMS 13:21 Complete Blood Count Ordered. EDMS 13:21 Drug Eval Toxicology ED Only Ordered. EDMS 13:21 Ethyl Alcohol (ethanol) Ordered. EDMS 13:21 HCG,Serum Qualitative Ordered. EDMS 13:21 Liver Profile Ordered. EDMS 13:21 Salicylate Level Ordered. EDMS 13:21 Thyroid Stimulating Hormone Ordered. EDMS 13:51 Nicotine Patch 21 mg/24 hr 1 applic Transdermal once ordered. ke 15:54 Financial registration complete. zo 16:47 REGULAR DIET PLASTIC HEADLEY+DIET ordered. EDMS 17:37 Consult PFS/PSA/Material Requirements Worker complete. me3 17:37 Consult PFS/PSA/Material Requirements Worker: Patient's case requires discussion with on-call me3 Psychiatrist complete. 17:37 PSA/PFS to call Nursing Delivery Sales Worker, to enter [place] if patient me3 involuntarily admitted or transferred for SI or HI complete. 18:06 PSA Outpatient Referrals was scanned into [employer] and attached to record. ml4 09/07 14:20 T-Sheet-- Draft Copy was scanned into [employer] and attached to record. gb Administered Medications: 09/06 14:25 Drug: Nicotine 1 applic [nicotine 21 mg/24 hr daily transdermal patch (1 patches)] me3 Route: Transdermal; Site: left upper arm; Signatures: Dispatcher MedHoNarragansett Beer EDThalia Nayak MD MD sd1 Pauline Camejo, RN RN [facility] Yanci, Marisa, Reg Reg gb Jackson Elizabeth, VEGETABLE FARM MANAGER VEGETABLE FARM MANAGER Soniya Hays LPN LPN me3 Josefina Andersen, PSA PSA ml4 Nathaniel Hare The chart was reviewed and I authenticate all verbal orders and agree with the evaluation and treatment provided.Attachments: 09/07 14:20 T-Sheet-- Draft Copy gb Chart Complete MTDD
== END 2016-09-06 17:39 | disposition home or self-care (01) ==
LOC: M ED 13:03
DX: F43.21 Adjustment disorder with depressed mood (principal); J44.9 Chronic obstructive pulmonary disease, unspecified; J45.909 Unspecified asthma, uncomplicated; I20.9 Angina pectoris, unspecified; M19.90 Unspecified osteoarthritis, unspecified site; I25.2 Old myocardial infarction; F17.210 Nicotine dependence, cigarettes, uncomplicated; Z79.899 Other long term (current) drug therapy; Z79.51 Long term (current) use of inhaled steroids; Z88.8 Allergy status to other drugs, medicaments and biological substances
CPT/HCPCS: 36415; 80048; 80076; 80306; 84443; 84703; 85027; 99283; G0480

== ENCOUNTER → 2017-07-21 | Outpatient (REF) ==
[2017-07-21 13:44] LABS: COLLAGEN EPINEPHRINE 103 SECONDS (74-162)
== END ==
LOC: M LAB REF 13:18
DX: Z00.00 Encounter for general adult medical examination without abnormal findings (principal)

== ENCOUNTER → 2021-05-12 | Outpatient (CLI) | payer OTHER ==
--- NOTE | 2021-05-12 15:12 | REP ---
INDICATION: ABNORMAL MAMMO OF RIGHT BREAST. Indeterminate calcifications COMPARISON: Outside screening mammogram of 12/30/2020 TECHNIQUE: CC and true lateral views of the right breast were obtained and supplemented by focal compression magnification views in the CC and MLO orientations. FINDINGS: The Volpara volumetric breast density pattern is a, almost entirely fatty. In the anterior 3rd of the right breast directly deep to and just above the nipple at the 12 o'clock position there is a group of indeterminate calcifications which appear to have increased in number since the December 30 exam. There may be a small mass associated.. IMPRESSION: BIRADS/ACR : Category 4: Suspicious abnormality. Biopsy recommended. This mammogram was interpreted with the aid of an FDA-approved computer-aided detection system. The patient letter being requested is M 4. RECOMMENDATION: Biopsy of the suspicious group of calcifications in the right breast, as described. <Electronically signed by Celestino Burnham > 05/12/21 [id number]
== END ==
LOC: M WHC 13:44
PROVIDERS: ATTEND Surgery
DX: R92.8 Other abnormal and inconclusive findings on diagnostic imaging of breast (principal); N63.11 Unspecified lump in the right breast, upper outer quadrant
CPT/HCPCS: 77065; G0279

== ENCOUNTER → 2021-05-26 | Outpatient (CLI) | payer OTHER ==
[~2021-05-26] MED LIST changes: +VENTAER INH
[2021-05-26 16:01] LABS: FREE T4 1.05 NG/DL (0.76-1.46); THYROID STIMULATING HORMONE 1.23 uIU/ML (0.358-3.740)
[2021-05-26 16:03] LABS: PROLACTIN 10.1 NG/ML
== END ==
LOC: M PLALAB 12:05
PROVIDERS: ATTEND Surgery
DX: N64.52 Nipple discharge (principal)

== ENCOUNTER → 2021-05-26 | Outpatient (CLI) | payer OTHER ==
[2021-05-26 11:52] VITALS: BP 118/72
--- NOTE | 2021-05-28 21:47 | ROOPDOC ---
[facility] Report Of Operation Report of Operation DATE OF PROCEDURE: 05/26/21 DIAGNOSIS: Right breast suspicious calcifications PROCEDURE: Right breast stereotactic biopsy with clip placement SURGEON: Leandra Kurtz BLOOD LOSS: minimal Lidocaine 1% LOT [id number] Expiration 11/2024 Sodium Bicarbonate 8.4% LOT [id number] Expiration 08/2021 Hydromark clip LOT [id number] Expiration 10/2021 SHAPE: 4 Bx device: Stereotactic Mammotome Revolve Dual Vacuum- assisted Biopsy System 10 G LOT [id number] Expiration 11/2023 REF [id number] Informed consent was obtained in the preop area. The most common risk and possible complications including bleeding, hematoma, bruising, infection, injury to surrounding structures were explained to the patient and patient expressed understanding. Patient was taken to the procedure room and placed prone on the [employer] [facility] Breast Biopsy table with the right breast hanging through the table opening. Right breast was placed into Cranio-Caudal compression and Bio[employer]er duane images were taken. Suspicious calcifications were identified on the duane images and target was set. CC approach from the bottom was chosen for this procedure. At this time, since we were able to confirm visibility of the suspicious calcifications and patient tolerated prone positioning allowing to proceed with the biopsy, appropriate time out was done stating patients name, date of , and the procedure to be performed. The right breast in CC compression was prepped in the usual fashion. Plain Lidocaine 1% and 8.4% sodium bicarbonate 10:1 mix was used to anesthetize the skin, the biopsy site and tissues along the anticipated biopsy tract. Small skin incision was made with blade number 11. Mammotome 10 G stereotactic breast biopsy device was inserted through the incision and advanced to the previously set coordinates marking the target lesion. Pre-fire imaging was taken to assure appropriate positioning. At this time, Mammotome 10 G breast biopsy device was fired and six vacuum assisted biopsies were collected. The biopsy samples were investigated with [employer] system and calcifications were observed. Biopsy samples were then placed in the formaldehyde, marked with patients name and right breast biopsy site, and sent to pathology for evaluation. SHAPE 4 Hydromark clip was placed into the Mammotome biopsy device channel and deployed. Post-deployment imaging was done to assure appropriate clip deployment. Clip was noted in the right breast. At this point, paddle CC compression of the right breast was released and manual pressure was held to decrease harmonic effect and to assure hemostasis. No bleeding was noted upon removal of the pressure. Patient was slowly repositioned and placed into sitting position, and then assisted off the table. Post-biopsy mammogram of the right breast was obtained and showed clip in expected position immediately adjacent to remaining calcs. Postprocedural dressing was placed. Patient tolerated procedure well and was taken to the recovery unit in stable condition. Discharge instructions were discussed with the patient and patient expressed understanding. LEANDRA KURTZ DO May 28, 2021 21:47
== END ==
LOC: M WHCPRO 07:45
PROVIDERS: ATTEND Surgery
DX: D24.1 Benign neoplasm of right breast (principal); R92.8 Other abnormal and inconclusive findings on diagnostic imaging of breast

== ENCOUNTER → 2021-08-06 | Outpatient (CLI) | payer OTHER ==
[~2021-08-06] MED LIST changes: +PROHANCE 279.3MG/ML 15ML VIAL As Ordered ONE; +PROHANCE 279.3MG/ML 5ML VIAL As Ordered ONE
== END ==
LOC: M RAD 12:25
PROVIDERS: ATTEND Surgery
DX: R92.8 Other abnormal and inconclusive findings on diagnostic imaging of breast (principal); N64.52 Nipple discharge
CPT/HCPCS: 77049; A9576

== ENCOUNTER → 2021-09-02 | Outpatient (CLI) | payer OTHER ==
[~2021-09-02] MED LIST changes: +IBUP80TA PO; -PROHANCE 279.3MG/ML 15ML VIAL As Ordered ONE; -PROHANCE 279.3MG/ML 5ML VIAL As Ordered ONE
== END ==
LOC: M PLAIMG 13:07
PROVIDERS: ATTEND Surgery
DX: Z01.818 Encounter for other preprocedural examination (principal)

== ENCOUNTER → 2021-09-02 | Outpatient (CLI) | payer OTHER | LOC: M LABSMTC 12:54 | PROVIDERS: ATTEND Anesthesiology | DX: Z01.812 Encounter for preprocedural laboratory examination (principal); Z20.822 Contact with and (suspected) exposure to COVID-19 ==

== ENCOUNTER 2021-09-07 06:02 | Day surgery (SDC) | payer OTHER ==
[~2021-09-07] VITALS: Ht 167.6 cm; Wt 112.9 kg
[~2021-09-07 06:02] MED LIST changes: +HEPARIN SOD (PORCINE) 5000UNITS/ML 1ML VIAL/SYRINGE SQ ONE; +LIDOCAINE 1% MDV 20ML VIAL SQ PRN; +LR 1,000 ML IV ONE; +ceFAZolin SOD 2 GM in IV 1 EA IV ONE
[2021-09-07] MEDS ORDERED: MIDAZOLAM INJ 2MG/2ML VIAL (J2250 PER 1MG) As Ordered ONE (06:57)
[2021-09-07] MEDS ORDERED: fentaNYL 100 MCG/2 ML INJECTION As Ordered ONE (06:57)
[2021-09-07] MEDS ORDERED: LIDOCAINE 2% 100MG/5ML SDV (FOR ANES.) As Ordered ONE (06:59)
[2021-09-07] MEDS ORDERED: propofoL 200 MG/20 ML VIAL As Ordered ONE (07:02)
[2021-09-07] MEDS ORDERED: BUPIVACAINE HCL 0.25% 30ML VIAL As Ordered ONE (07:16)
[2021-09-07] MEDS ORDERED: LIDOCAINE 1% SDV 30ML VIAL As Ordered ONE (07:16)
[2021-09-07] MEDS ORDERED: SCOPOLAMINE 1MG TRANSDERMAL PATCH TOP ONE (07:20)
[2021-09-07] MEDS ORDERED: ROCURONIUM BROMIDE 50 MG/5 ML VIAL As Ordered ONE (07:37)
[2021-09-07] MEDS ORDERED: dexameTHASONE 4 MG/ML 1ML VIAL (J1100 PER 1MG) As Ordered ONE (07:54)
[2021-09-07] MEDS ORDERED: ACETAMINOPHEN 1000MG 100ML IV BTL (OFIRMEV) (J0131 PER 10MG) As Ordered ONE (07:56)
[2021-09-07] MEDS ORDERED: KETOROLAC 60MG 2ML VIAL As Ordered ONE (08:01)
[2021-09-07] MEDS ORDERED: ONDANSETRON 4MG/2ML VIAL As Ordered ONE (08:01)
[2021-09-07] MEDS ORDERED: SUGAMMADEX SODIUM 500 MG/5 ML VIAL (BRIDION) As Ordered ONE (08:24)
[2021-09-07] MEDS ORDERED: VASOPRESSIN INJ 20 UNITS/ML VIAL As Ordered ONE (08:52)
[2021-09-07] MEDS ORDERED: ACET-897 PO (09:26)
[2021-09-07] MEDS ORDERED: ULTR50TA8 PO (09:26)
[2021-09-07] MEDS ORDERED: LR 1,000 ML IV SCH (09:50)
[2021-09-07] MEDS ORDERED: ONDANSETRON 4MG/2ML VIAL IV PRN (09:50)
[2021-09-07] MEDS ORDERED: fentaNYL 100 MCG/2 ML INJECTION IV PRN (09:50)
[2021-09-07] MEDS ORDERED: METOCLOPRAMIDE INJ 10MG/2ML VIAL (J2765 PER 1) IV PRN (09:50)
[2021-09-07] MEDS ORDERED: HYDROMORPHONE HCL 0.5 MG/ 0.5 ML SYRINGE (J1170 PER 1) IV PRN (09:50)
[2021-09-07] MEDS ORDERED: oxyCODONE 5MG TAB PO PRN (09:50)
[2021-09-07 10:08] VITALS: BP 118/60
== END 2021-09-07 10:25 | disposition home or self-care (01) ==
LOC: M SDC 06:02
PROVIDERS: ATTEND Surgery
DX: N63.10 Unspecified lump in the right breast, unspecified quadrant (principal); I10 Essential (primary) hypertension; G43.909 Migraine, unspecified, not intractable, without status migrainosus; F32.9 Major depressive disorder, single episode, unspecified; J44.9 Chronic obstructive pulmonary disease, unspecified; Z79.51 Long term (current) use of inhaled steroids; Z79.899 Other long term (current) drug therapy
CPT/HCPCS: 19125; 36415; 76942; 86850; 86900; 86901; 88307; J0131; J0690; J1100; J1644; J2250; J2405; J3010

== ENCOUNTER → 2024-02-27 | Outpatient (REF) | payer OTHER ==
[~2024-02-27] MED LIST changes: +ACET-897 PO; -HEPARIN SOD (PORCINE) 5000UNITS/ML 1ML VIAL/SYRINGE SQ ONE; -LIDOCAINE 1% MDV 20ML VIAL SQ PRN; -LR 1,000 ML IV ONE; +ULTR50TA8 PO; -ceFAZolin SOD 2 GM in IV 1 EA IV ONE
[2024-02-28 14:05] LABS: ALBUMIN 3.6 G/DL (3.2-5.2); ALKALINE PHOSPHATASE 99 U/L (46-116); ALT/SGPT 15 U/L (7.0-40); AST/SGOT 12 U/L (<34); BILIRUBIN,TOTAL 0.3 MG/DL (0.3-1.2); BLOOD UREA NITROGEN 13 MG/DL (9-23); CALCIUM LEVEL 8.3 MG/DL (8.5-10.1); CARBON DIOXIDE LEVEL 27 MMOL/L (20-31); CHLORIDE LEVEL 105 MMOL/L (98-107); CHOLESTEROL LEVEL 207 MG/DL (<200); CHOLESTEROL RISK RATIO 6.19 (<5); CREATININE FOR GFR 0.94 MG/DL (0.55-1.30); GLOMERULAR FILTRATION RATE > 60.0 (>58); GLUCOSE, FASTING 86 MG/DL (60-100); HDL CHOLESTEROL 33.4 MG/DL (>40); LDL CHOLESTEROL 119.8 MG/DL (<100); NON-HDL-C 173.6 MG/DL; POTASSIUM SERUM 5.1 MMOL/L (3.5-5.1); SODIUM LEVEL 135 MMOL/L (136-145); TOTAL PROTEIN 6.9 G/DL (5.7-8.2); TRIGLYCERIDES LEVEL 269 MG/DL (<150)
[2024-02-28 14:06] LABS: THYROID STIMULATING HORMONE 1.684 uIU/ML (0.55-4.78); TOTAL 25(OH) VITAMIN D 25.4 NG/ML (20.0-100.0)
== END ==
LOC: M LAB REF 16:15
PROVIDERS: ATTEND Physician Assistant
DX: R30.0 Dysuria (principal)

== ENCOUNTER → 2024-04-10 | Outpatient (CLI) | payer OTHER | LOC: M WHC 07:43 | PROVIDERS: ATTEND Physician Assistant | DX: Z12.31 Encounter for screening mammogram for malignant neoplasm of breast (principal) ==

== ENCOUNTER → 2024-04-15 | Outpatient (CLI) | payer OTHER | LOC: M EKG 12:35 | PROVIDERS: ATTEND Physician Assistant | DX: R42 Dizziness and giddiness (principal); Z53.9 Procedure and treatment not carried out, unspecified reason ==

== ENCOUNTER → 2024-04-17 | Outpatient (CLI) | payer OTHER | LOC: M RAD 14:17 | PROVIDERS: ATTEND Physician Assistant | DX: M67.431 Ganglion, right wrist (principal) ==

== ENCOUNTER → 2024-05-23 | Outpatient (REF) | payer OTHER ==
[2024-05-23 17:31] LABS: BASO # 0.1 10^3/uL (0.0-0.2); BASO % 0.7 % (0.0-1.0); EOS # 0.3 10^3/uL (0.0-0.5); HEMOGLOBIN 15.3 g/dl (12.0-15.5); LYMPH % 42.8 % (24.0-44.0); MEAN CORPUSCULAR HGB CONC 33.3 g/dl (32.0-36.5); MEAN CORPUSCULAR VOLUME 96.2 fl (80.0-96.0); MONO # 0.9 10^3/uL (0.0-0.8); MONO % 9.2 % (2.0-8.0); NEUTROPHILS # 4.1 10^3/uL (1.5-8.5); NEUTROPHILS % 43.8 % (36.0-66.0); PLATELET COUNT, AUTOMATED 256 10^3/uL (150-450); RED BLOOD COUNT 4.78 10^6/uL (4.00-5.40); WHITE BLOOD COUNT 9.4 10^3/uL (4.0-10.0)
[2024-05-23 17:35] LABS: INR 0.91; PARTIAL THROMBOPLASTIN TIME 30.4 SECONDS (24.8-34.2); PROTHROMBIN TIME 12.6 SECONDS (12.5-14.5)
[2024-05-23 17:56] LABS: BLOOD UREA NITROGEN 13 MG/DL (9-23); CARBON DIOXIDE LEVEL 26 MMOL/L (20-31); CHLORIDE LEVEL 105 MMOL/L (98-107); CK-MB VALUE MASS < 1.0 NG/ML (<3.6); CREATININE FOR GFR 0.93 MG/DL (0.55-1.30); GLOMERULAR FILTRATION RATE > 60.0 (>51); GLUCOSE, FASTING 82 MG/DL (60-100); SODIUM LEVEL 137 MMOL/L (136-145)
[2024-05-23 17:57] LABS: CPK CREATINE PHOSPHOKINASE 42 U/L (34-145); MB/CK RELATIVE INDEX 2.38 (< OR =4)
[2024-05-23 17:59] LABS: FREE T4 1.17 NG/DL (0.89-1.76); THYROID STIMULATING HORMONE 1.447 uIU/ML (0.55-4.78)
== END ==
LOC: M LAB REF 17:12
PROVIDERS: ATTEND Physician Assistant
DX: R55 Syncope and collapse (principal)

== ENCOUNTER → 2024-05-31 | Outpatient (CLI) | payer OTHER | LOC: M CARPUL 15:43 | PROVIDERS: ATTEND Physician Assistant | DX: R55 Syncope and collapse (principal) ==

== ENCOUNTER → 2024-06-12 | Outpatient (CLI) | payer OTHER | LOC: M RAD 13:40 | PROVIDERS: ATTEND Physician Assistant | DX: H53.123 Transient visual loss, bilateral (principal) ==

== ENCOUNTER → 2024-06-19 | Outpatient (CLI) | payer OTHER | LOC: M SOG 07:57 | PROVIDERS: ATTEND Physician Assistant | DX: Z53.9 Procedure and treatment not carried out, unspecified reason (principal) ==

== ENCOUNTER → 2024-07-31 | Outpatient (CLI) | payer OTHER | LOC: M SOG 08:00 | PROVIDERS: ATTEND Physician Assistant | DX: M25.561 Pain in right knee (principal); Z53.9 Procedure and treatment not carried out, unspecified reason ==

== ENCOUNTER → 2024-08-20 | Outpatient (CLI) | payer OTHER | LOC: M SOG 08:01 | PROVIDERS: ATTEND Physician Assistant | DX: Z53.9 Procedure and treatment not carried out, unspecified reason (principal) ==

== ENCOUNTER → 2024-08-28 | Outpatient (CLI) | payer OTHER | LOC: M SOG 07:57 | PROVIDERS: ATTEND Physician Assistant | DX: Z53.9 Procedure and treatment not carried out, unspecified reason (principal) ==

== ENCOUNTER → 2024-10-03 | Outpatient (REF) | payer OTHER ==
[2024-10-03 16:12] LABS: ALBUMIN 3.5 G/DL (3.2-5.2); ALKALINE PHOSPHATASE 93 U/L (35-104); ALT/SGPT 22 U/L (7.0-40); AST/SGOT 15 U/L (<34); BILIRUBIN,TOTAL 0.4 MG/DL (0.3-1.2); BLOOD UREA NITROGEN 13 MG/DL (9-23); CALCIUM LEVEL 9.2 MG/DL (8.5-10.1); CARBON DIOXIDE LEVEL 27 MMOL/L (20-31); CHLORIDE LEVEL 105 MMOL/L (98-107); CREATININE FOR GFR 0.89 MG/DL (0.55-1.30); GLOMERULAR FILTRATION RATE > 60.0 (>51); GLUCOSE, FASTING 87 MG/DL (60-100); MAGNESIUM LEVEL 2.2 MG/DL (1.8-2.4); POTASSIUM SERUM 4.5 MMOL/L (3.5-5.1); SODIUM LEVEL 140 MMOL/L (136-145); TOTAL PROTEIN 7.1 G/DL (5.7-8.2)
[2024-10-03 16:16] LABS: THYROID STIMULATING HORMONE 1.835 uIU/ML (0.55-4.78)
[2024-10-03 16:17] LABS: FREE T4 1.32 NG/DL (0.89-1.76)
[2024-10-03 16:20] LABS: BASO # 0.1 10^3/uL (0.0-0.2); EOS # 0.2 10^3/uL (0.0-0.5); EOS % 1.9 % (0.0-3.0); HEMATOCRIT 45.5 % (36.0-47.0); HEMOGLOBIN 15.3 g/dl (12.0-15.5); LYMPH # 3.1 10^3/uL (1.5-5.0); LYMPH % 33.2 % (24.0-44.0); MEAN CORPUSCULAR HEMOGLOBIN 31.4 pg (27.0-33.0); MEAN CORPUSCULAR HGB CONC 33.6 g/dl (32.0-36.5); MEAN CORPUSCULAR VOLUME 93.2 fl (80.0-96.0); MONO % 10.2 % (2.0-8.0); NEUTROPHILS % 53.5 % (36.0-66.0); PLATELET COUNT, AUTOMATED 273 10^3/uL (150-450); RED BLOOD COUNT 4.88 10^6/uL (4.00-5.40); WHITE BLOOD COUNT 9.4 10^3/uL (4.0-10.0)
[2024-10-03 16:29] LABS: HEMOGLOBIN A1c 4.8 % (4.0-6.0)
== END ==
LOC: M LAB REF 15:04
PROVIDERS: ATTEND Physician Assistant
DX: R42 Dizziness and giddiness (principal); R19.7 Diarrhea, unspecified

== ENCOUNTER → 2024-10-22 | Outpatient (REF) | payer OTHER | LOC: M LAB REF 17:02 | PROVIDERS: ATTEND Nurse Practitioner Family | DX: J06.9 Acute upper respiratory infection, unspecified (principal) ==

== ENCOUNTER → 2024-10-31 | Outpatient (REF) | payer OTHER ==
[2024-10-31 18:38] LABS: BASO # 0.1 10^3/uL (0.0-0.2); BASO % 0.7 % (0.0-1.0); EOS # 0.3 10^3/uL (0.0-0.5); EOS % 2.4 % (0.0-3.0); HEMOGLOBIN 14.8 g/dl (12.0-15.5); LYMPH # 5.3 10^3/uL (1.5-5.0); LYMPH % 37.5 % (24.0-44.0); MEAN CORPUSCULAR HEMOGLOBIN 32.5 pg (27.0-33.0); MEAN CORPUSCULAR HGB CONC 33.6 g/dl (32.0-36.5); MEAN CORPUSCULAR VOLUME 96.7 fl (80.0-96.0); MONO # 1.4 10^3/uL (0.0-0.8); MONO % 9.8 % (2.0-8.0); NEUTROPHILS # 6.9 10^3/uL (1.5-8.5); NEUTROPHILS % 48.9 % (36.0-66.0); PLATELET COUNT, AUTOMATED 283 10^3/uL (150-450); RED BLOOD COUNT 4.55 10^6/uL (4.00-5.40); WHITE BLOOD COUNT 14.1 10^3/uL (4.0-10.0)
[2024-10-31 18:46] LABS: ERYTHROCYTE SEDIMENTATION RATE 34 mm/hr (0-30)
[2024-10-31 18:57] LABS: C REACTIVE PROTEIN QUANTITATIV 1.34 MG/DL (<1.0)
[2024-10-31 19:00] LABS: MONO REFLEX EBV COMP NEGATIVE (NEGATIVE)
== END ==
LOC: M LAB REF 17:28
PROVIDERS: ATTEND Physician Assistant
DX: R07.0 Pain in throat (principal)

== ENCOUNTER → 2024-11-01 | Outpatient (CLI) | payer OTHER | LOC: M RAD 09:39 | PROVIDERS: ATTEND Physician Assistant | DX: J44.9 Chronic obstructive pulmonary disease, unspecified (principal) ==

== ENCOUNTER 2024-11-08 10:36 | Outpatient (RCR) | payer OTHER | END 2024-11-13 | LOC: M PT 10:36 | PROVIDERS: ATTEND Physician Assistant | DX: R42 Dizziness and giddiness (principal) ==

== ENCOUNTER → 2025-01-16 | Outpatient (REF) | payer OTHER ==
[2025-01-16 15:43] LABS: BASO # 0.1 10^3/uL (0.0-0.2); BASO % 0.8 % (0.0-1.0); EOS # 0.2 10^3/uL (0.0-0.5); EOS % 2.4 % (0.0-3.0); LYMPH # 2.9 10^3/uL (1.5-5.0); LYMPH % 37.3 % (24.0-44.0); MONO # 0.6 10^3/uL (0.0-0.8); MONO % 8.2 % (2.0-8.0); NEUTROPHILS # 4.0 10^3/uL (1.5-8.5); NEUTROPHILS % 51.0 % (36.0-66.0); PLATELET COUNT, AUTOMATED 221 10^3/uL (150-450)
[2025-01-16 15:48] LABS: ERYTHROCYTE SEDIMENTATION RATE 37 mm/hr (0-30)
[2025-01-16 16:08] LABS: ESTIMATED AVERAGE GLUCOSE 97.0 MG/DL (60-110)
[2025-01-16 16:12] LABS: C REACTIVE PROTEIN QUANTITATIV 0.53 MG/DL (<1.0)
[2025-01-16 16:14] LABS: ALT/SGPT 15.0 U/L (7.0-40); AST/SGOT 16.0 U/L (<34); CALCIUM LEVEL 8.7 MG/DL (8.5-10.1); CARBON DIOXIDE LEVEL 24.0 MMOL/L (20-31); CHLORIDE LEVEL 107.0 MMOL/L (98-107); CREATININE FOR GFR 0.89 MG/DL (0.55-1.30); GLOMERULAR FILTRATION RATE 78.9 (>51); POTASSIUM SERUM 4.1 MMOL/L (3.5-5.1); RHEUMATOID FACTOR QUANT 4.4 IU/ML (<14); SODIUM LEVEL 141.0 MMOL/L (136-145)
[2025-01-20 14:44] LABS: SSA SJOGRENS A <1.0 NEG AI (<1.0 NEG); SSB SJOGRENS B <1.0 NEG AI (<1.0 NEG)
[2025-01-22 15:09] LABS: HLA-B27 Negative (Negative)
== END ==
LOC: M LAB REF 14:44
PROVIDERS: ATTEND Physician Assistant
DX: R61 Generalized hyperhidrosis (principal)

== ENCOUNTER → 2025-01-22 | Outpatient (REF) | payer OTHER | LOC: M LAB REF 17:42 | PROVIDERS: ATTEND Physician Assistant | DX: R30.0 Dysuria (principal) ==

== ENCOUNTER → 2025-02-18 | Outpatient (CLI) | payer OTHER | LOC: M RAD 09:38 | PROVIDERS: ATTEND Physician Assistant | DX: R91.8 Other nonspecific abnormal finding of lung field (principal) ==

== ENCOUNTER → 2025-03-08 | Outpatient (CLI) | payer OTHER | LOC: M SLEEP 20:00 | PROVIDERS: ATTEND Physician Assistant | DX: G47.33 Obstructive sleep apnea (adult) (pediatric) (principal); R40.0 Somnolence ==

== ENCOUNTER → 2025-04-08 | Outpatient (REF) | payer OTHER ==
[2025-04-08 15:06] LABS: BASO # 0.1 10^3/uL (0.0-0.2); BASO % 1.0 % (0.0-1.0); EOS # 0.2 10^3/uL (0.0-0.5); EOS % 2.7 % (0.0-3.0); LYMPH # 2.9 10^3/uL (1.5-5.0); LYMPH % 35.3 % (24.0-44.0); MONO # 0.9 10^3/uL (0.0-0.8); MONO % 10.3 % (2.0-8.0); NEUTROPHILS # 4.2 10^3/uL (1.5-8.5); NEUTROPHILS % 50.3 % (36.0-66.0); PLATELET COUNT, AUTOMATED 251 10^3/uL (150-450)
[2025-04-08 15:47] LABS: TOTAL 25(OH) VITAMIN D 30.3 NG/ML (20.0-100.0)
[2025-04-08 15:50] LABS: FREE T4 1.22 NG/DL (0.89-1.76)
[2025-04-08 15:51] LABS: ALT/SGPT 19.0 U/L (7.0-40); AST/SGOT 15.0 U/L (<34); CALCIUM LEVEL 9.1 MG/DL (8.5-10.1); CARBON DIOXIDE LEVEL 27.0 MMOL/L (20-31); CHLORIDE LEVEL 108.0 MMOL/L (98-107); CHOLESTEROL LEVEL 193.0 MG/DL (<200); CHOLESTEROL RISK RATIO 5.59 (<5); CREATININE FOR GFR 1.07 MG/DL (0.55-1.30); GLOMERULAR FILTRATION RATE 63.3 (>51); LDL CHOLESTEROL 120.9 MG/DL (<100); NON-HDL-C 158.5 MG/DL; POTASSIUM SERUM 4.5 MMOL/L (3.5-5.1); SODIUM LEVEL 142.0 MMOL/L (136-145); TRIGLYCERIDES LEVEL 188.0 MG/DL (<150)
[2025-04-08 19:42] LABS: ESTIMATED AVERAGE GLUCOSE 103.0 MG/DL (60-110)
== END ==
LOC: M LAB REF 12:30
PROVIDERS: ATTEND Physician Assistant
DX: E78.2 Mixed hyperlipidemia (principal); E55.9 Vitamin D deficiency, unspecified; R42 Dizziness and giddiness